=== PATIENT | male | born 1985 | race Caucasian/White ===

== ENCOUNTER 2020-09-11 12:52 | Emergency (ER) | payer OTHER ==
[~2020-09-11] VITALS: Ht 188 cm; Wt 74.8 kg
== END 2020-09-11 14:47 | disposition home or self-care (01) ==
LOC: ER 12:52
DX: S93.601A Unspecified sprain of right foot, initial encounter (principal); S93.401A Sprain of unspecified ligament of right ankle, initial encounter; F17.210 Nicotine dependence, cigarettes, uncomplicated
CPT/HCPCS: 73610; 73630; 99283-25; A9270